=== PATIENT | female | born 1985 | race Caucasian/White ===

== ENCOUNTER → 2019-01-31 | Outpatient (CLI) | payer OTHER ==
--- NOTE | 2019-01-31 15:39 | US ---
EXAMINATION TYPE: US thyroid st tissue head/neck DATE OF EXAM: 01/31/2019 COMPARISON: US CLINICAL HISTORY: R22.0 Localized swelling, mass and lump, head. Right anterior neck prominence noted x 2 weeks GLAND SIZE: Right Lobe: 5.1 x 1.9 x 1.8 cm Overall Parenchyma: homogenous Left Lobe: 5.1 x 1.7 x 1.5 cm Overall Parenchyma: homogeneous Isthmus Thickness: 0.3 cm NODULES RIGHT: # of nodules measured on right: 0 LEFT: # of nodules measured on left: 0 ISTHMUS: # of nodules measured in the isthmus: 0 Bilateral neck scanned: no evidence of lymphadenopathy. No sonographic mass is seen anteriorly at right neck patient's area of concern. IMPRESSION: Mildly enlarged thyroid gland without focal thyroid nodule. No mass is seen sonographically at the lo cation of the patient's palpable abnormality.
[2019-01-31 16:00] LABS: T4, Free (Free Thyroxine) 0.81 ng/dL (0.78-2.19)
== END ==
LOC: RADUSWWP 14:56
PROVIDERS: ATTEND Internal Medicine
DX: E04.9 Nontoxic goiter, unspecified (principal); Z88.0 Allergy status to penicillin
CPT/HCPCS: 36415; 76536; 84439; 84443; 84481; 86800

== ENCOUNTER 2020-12-22 09:09 | Emergency (ER) | payer OTHER ==
[2020-12-22 09:13] VITALS: BP 115/70; PULSE 89; RESP 18; TEMP 97.7
[2020-12-22] MEDS ORDERED: SODIUM CHLORIDE 0.9% 1,000 ML IV STA (09:30)
[2020-12-22 10:02] LABS: Basophils % (A) 1 %; Eosinophils % (A) 1 %; HCT 46.2 % (34.0-46.0); Lymphocytes # (A) 1.2 k/uL (1.0-4.8); Lymphocytes % (A) 16 %; MCHC 34.6 g/dL (31.0-37.0); MCV 92.3 fL (80.0-100.0); Mean Platelet Volume 7.2; Monocytes # (A) 0.3 k/uL (0-1.0); Monocytes % (A) 3 %; Neutrophils % (A) 79 %; Platelet Count 243 k/uL (150-450); RDW 11.9 % (11.5-15.5); WBC 7.6 k/uL (3.8-10.6)
--- NOTE | 2020-12-22 10:03 | ED ---
Abdominal Pain HPI - General Chief Complaint: Abdominal Pain Stated Complaint: abd pain/blood in stool Time Seen by Provider: 12/22/20 09:19 Source: patient, RN notes reviewed Mode of arrival: ambulatory Limitations: no limitations - History of Present Illness Initial Comments: This is a 35-year-old female presents emergency Department with chief complaint of abdominal pain. Patient states started last night after eating. States she started having lower abdominal pain states that she then started having some diarrhea which she noticed some blood within the stool. Patient has no prior GI his. Denies any history of ulcerative colitis, Crohn's, diverticulitis. Patient reports no fevers chills slight nausea no dysuria no hematuria denies any chance . - Related Data Home Medications Medication Instructions Recorded Confirmed Elderberry Fruit and Flower [Black 1 cap PO DAILY 12/22/20 12/22/20 Elderberry 575 mg Cap] Zinc 50 mg PO DAILY 12/22/20 12/22/20 medroxyPROGESTERone [Depo-Provera] 150 mg IM Q90D 12/22/20 12/22/20 Previous Rx's Medication Instructions Recorded Ciprofloxacin HCl [Cipro] 500 mg PO Q12HR #14 tablet 12/22/20 Ondansetron Odt [Zofran Odt] 4 mg PO Q8HR PRN #10 tab 12/22/20 metroNIDAZOLE [Flagyl] 500 mg PO TID #21 tab 12/22/20 Allergies Allergy/AdvReac Type Severity Reaction Status Date / Time Penicillins Allergy Unknown Verified 12/22/20 11:14 Childhood Sulfa (Sulfonamide Allergy Unknown Verified 12/22/20 11:14 Antibiotics) Childhood Review of Systems ROS Statement: Those systems with pertinent positive or pertinent negative responses have been documented in the HPI. ROS Other: All systems not noted in ROS Statement are negative. Past Medical History Past Medical History: No Reported History History of Any Multi-Drug Resistant Organisms: None Reported Additional Past Surgical History / Comment(s): oral Past Psychological History: No Psychological Hx Reported Smoking Status: Current every day smoker Past Alcohol Use History: None Reported Past Drug Use History: Marijuana General Exam Limitations: no limitations General appearance: alert, in no apparent distress Head exam: Present: atraumatic, normocephalic, normal inspection Neck exam: Present: normal inspection. Absent: tenderness, meningismus, lymphadenopathy Respiratory exam: Present: normal lung sounds bilaterally. Absent: respiratory distress, wheezes, rales, rhonchi, stridor Cardiovascular Exam: Present: regular rate, normal rhythm, normal heart sounds. Absent: systolic murmur, diastolic murmur, rubs, gallop, clicks GI/Abdominal exam: Present: soft, tenderness (Moderate right lower quadrant), normal bowel sounds. Absent: distended, guarding, rebound, rigid Back exam: Absent: CVA tenderness (R), CVA tenderness (L) Neurological exam: Present: alert, oriented X3 Skin exam: Present: warm, dry, intact, normal color. Absent: rash Course Vital Signs 12/22/20 09:11 Temperature 97.7 F Pulse Rate 89 Respiratory 18 Rate Blood Pressure 115/70 O2 Sat by Pulse 99 Oximetry Medical Decision Making - Medical Decision Making 35-year-old female presented for abdominal pain. CT shows evidence of colitis. Patient symptoms are consistent with this. Patient be discharged in stable condition with close follow-up return parameters were discussed patient presents to plan. - Lab Data Result diagrams: 12/22/20 09:42 12/22/20 09:42 Lab Results 12/22/20 12/22/20 12/22/20 Range/Units 09:42 09:42 09:42 WBC 7.6 (3.8-10.6) k/uL RBC 5.00 (3.80-5.40) m/uL Hgb 16.0 (11.4-16.0) gm/dL Hct 46.2 H (34.0-46.0) % MCV 92.3 (80.0-100.0) fL MCH 32.0 (25.0-35.0) pg MCHC 34.6 (31.0-37.0) g/dL RDW 11.9 (11.5-15.5) % Plt Count 243 (150-450) k/uL MPV 7.2 Neutrophils % 79 % Lymphocytes % 16 % Monocytes % 3 % Eosinophils % 1 % Basophils % 1 % Neutrophils # 6.0 (1.3-7.7) k/uL Lymphocytes # 1.2 (1.0-4.8) k/uL Monocytes # 0.3 (0-1.0) k/uL Eosinophils # 0.0 (0-0.7) k/uL Basophils # 0.0 (0-0.2) k/uL PT 9.8 (9.0-12.0) sec INR 0.9 (<1.2) APTT 24.2 (22.0-30.0) sec Sodium (137-145) mmol/L Potassium (3.5-5.1) mmol/L Chloride (98-107) mmol/L Carbon Dioxide (22-30) mmol/L Anion Gap mmol/L BUN (7-17) mg/dL Creatinine (0.52-1.04) mg/dL Est GFR (CKD-EPI)AfAm (>60 ml/min/1.73 sqM) Est GFR (CKD-EPI)NonAf (>60 ml/min/1.73 sqM) Glucose (74-99) mg/dL Plasma Lactic Acid Sridhar (0.7-2.0) mmol/L Calcium (8.4-10.2) mg/dL Total Bilirubin (0.2-1.3) mg/dL AST (14-36) U/L ALT (4-34) U/L Alkaline Phosphatase (38-126) U/L Total Protein (6.3-8.2) g/dL Albumin (3.5-5.0) g/dL Amylase (30-110) U/L Lipase (23-300) U/L Urine Color Yellow Urine Appearance Cloudy H (Clear) Urine pH 5.5 (5.0-8.0) Ur Specific [place] 1.023 (1.001-1.035) Urine Protein Negative (Negative) Urine Glucose (UA) Negative (Negative) Urine Ketones 2+ H (Negative) Urine Blood Negative (Negative) Urine Nitrite Negative (Negative) Urine Bilirubin Negative (Negative) Urine Urobilinogen <2.0 (<2.0) mg/dL Ur Leukocyte Esterase Negative (Negative) Urine WBC 4 (0-5) /hpf Ur Squamous Epith Cells 3 (0-4) /hpf Urine Bacteria Rare H (None) /hpf Urine Mucus Rare H (None) /hpf Urine HCG, Qual (Not Detectd) 12/22/20 12/22/20 12/22/20 Range/Units 09:42 09:42 09:42 WBC (3.8-10.6) k/uL RBC (3.80-5.40) m/uL Hgb (11.4-16.0) gm/dL Hct (34.0-46.0) % MCV (80.0-100.0) fL MCH (25.0-35.0) pg MCHC (31.0-37.0) g/dL RDW (11.5-15.5) % Plt Count (150-450) k/uL MPV Neutrophils % % Lymphocytes % % Monocytes % % Eosinophils % % Basophils % % Neutrophils # (1.3-7.7) k/uL Lymphocytes # (1.0-4.8) k/uL Monocytes # (0-1.0) k/uL Eosinophils # (0-0.7) k/uL Basophils # (0-0.2) k/uL PT (9.0-12.0) sec INR (<1.2) APTT (22.0-30.0) sec Sodium 139 (137-145) mmol/L Potassium 4.0 (3.5-5.1) mmol/L Chloride 108 H (98-107) mmol/L Carbon Dioxide 23 (22-30) mmol/L Anion Gap 8 mmol/L BUN 8 (7-17) mg/dL Creatinine 0.66 (0.52-1.04) mg/dL Est GFR (CKD-EPI)AfAm >90 (>60 ml/min/1.73 sqM) Est GFR (CKD-EPI)NonAf >90 (>60 ml/min/1.73 sqM) Glucose 114 H (74-99) mg/dL Plasma Lactic Acid Sridhar 0.8 (0.7-2.0) mmol/L Calcium 9.4 (8.4-10.2) mg/dL Total Bilirubin 0.9 (0.2-1.3) mg/dL AST 26 (14-36) U/L ALT 25 (4-34) U/L Alkaline Phosphatase 72 (38-126) U/L Total Protein 6.9 (6.3-8.2) g/dL Albumin 4.5 (3.5-5.0) g/dL Amylase 79 (30-110) U/L Lipase 158 (23-300) U/L Urine Color Urine Appearance (Clear) Urine pH (5.0-8.0) Ur Specific [place] (1.001-1.035) Urine Protein (Negative) Urine Glucose (UA) (Negative) Urine Ketones (Negative) Urine Blood (Negative) Urine Nitrite (Negative) Urine Bilirubin (Negative) Urine Urobilinogen (<2.0) mg/dL Ur Leukocyte Esterase (Negative) Urine WBC (0-5) /hpf Ur Squamous Epith Cells (0-4) /hpf Urine Bacteria (None) /hpf Urine Mucus (None) /hpf Urine HCG, Qual Not Detected (Not Detectd) Disposition Clinical Impression: Colitis Disposition: HOME SELF-CARE Condition: Stable Instructions (If sedation given, give patient instructions): Infectious Colitis (ED) Additional Instructions: Please return to the Emergency Department if symptoms worsen or any other concerns. Prescriptions: Ciprofloxacin HCl [Cipro] 500 mg PO Q12HR #14 tablet metroNIDAZOLE [Flagyl] 500 mg PO TID #21 tab Ondansetron Odt [Zofran Odt] 4 mg PO Q8HR PRN #10 tab PRN Reason: Nausea Is patient prescribed a controlled substance at d/c from ED?: No Referrals: Benita Rodriguez DO [Primary Care Provider] - 1-2 days Time of Disposition: 11:35
[2020-12-22 10:06] LABS: Appearance,Urine Cloudy (Clear); Bacteria,Urine Rare /hpf; Bilirubin,Urine Negative (Negative); Blood,Urine Negative (Negative); Color,Urine Yellow; Glucose,Urine (UA) Negative (Negative); Ketones,Urine 2+ (Negative); Leukocyte Esterase,Urine Negative (Negative); Mucus,Urine Rare /hpf; Nitrite,Urine Negative (Negative); PH, Urine 5.5 (5.0-8.0); Protein,Urine Negative (Negative); Specific Gravity,Urine 1.023 (1.001-1.035); Squamous Epithelial Cell,Urine 3 /hpf (0-4); Urobilinogen,Urine <2.0 mg/dL (<2.0); WBC,Urine 4 /hpf (0-5)
[2020-12-22 10:15] LABS: ALT 25 U/L (4-34); AST 26 U/L (14-36); African American GFR (CKD) >90 (>60 ml/min/1.73 sqM); Albumin 4.5 g/dL (3.5-5.0); Alkaline Phosphatase 72 U/L (38-126); Amylase 79 U/L (30-110); Anion Gap 8 mmol/L; Blood Urea Nitrogen 8 mg/dL (7-17); Calcium 9.4 mg/dL (8.4-10.2); Carbon Dioxide 23 mmol/L (22-30); Chloride 108 mmol/L (98-107); Glucose 114 mg/dL (74-99); Lipase 158 U/L (23-300); Non-African American GFR(CKD) >90 (>60 ml/min/1.73 sqM); Sodium 139 mmol/L (137-145); Total Bilirubin 0.9 mg/dL (0.2-1.3); Total Protein 6.9 g/dL (6.3-8.2)
[2020-12-22 10:26] LABS: INR 0.9 (<1.2); Partial Thromboplastin Time 24.2 sec (22.0-30.0); Prothrombin Time 9.8 sec (9.0-12.0)
--- NOTE | 2020-12-22 10:46 | CT ---
EXAMINATION TYPE: CT abdomen pelvis w con DATE OF EXAM: 12/22/2020 COMPARISON: None HISTORY: RLQ abdominal pain, blood in stool CT DLP: 662.4 mGycm Automated exposure control for dose reduction was used. CONTRAST: CT scan of the abdomen pelvis is performed with IV Contrast, patient injected with 100 ml mL of Isovu e 300. FINDINGS- LUNG BASES- No significant abnormality is appreciated. LIVER/GB-1.4 cm hypodense lesion in the dome of the liver does not meet the criteria of a simple cyst . Recommend follow-up MRI with hemangioma of measures 40 Hounsfield units. PANCREAS- No gross abnormality is seen. SPLEEN- No gross abnormality is seen. ADRENALS- No gross abnormality is seen. KIDNEYS/BLADDER- no hydronephrosis nephrolithiasis or renal mass. BOWEL-appendix is normal. There is mild wall thickening of the left colon which could be related to i ncomplete distention. Correlate clinically to exclude a mild colitis. No evidence of obstruction... LYMPH NODES- No greater than 1cm abdominal or pelvic lymph nodes areappreciated. OSSEOUS STRUCTURES-osseous structures intact. Central disc protrusion L4-L5 OTHER- aorta of normal caliber. Small fat-containing periumbilical hernia. There is a right adnexal cysts likely ovarian measuring 1.4 cm. IMPRESSION- 1. Nonspecific abdomen with no obstruction. Normal-appearing appendix. Wall thickening to the left co jaleesa could be related to incomplete distention. However, correlate clinically to exclude a mild coliti s. 2. 1.3 cm hepatic dome lesion does not meet the criteria of a simple cyst. Measures 40 Hounsfield uni ts. Recommend follow-up MRI with hemangioma protocol. 3. There is a 1.4 cm right ovarian cyst. 4. Suspect central disc protrusion L4-L5.
== END 2020-12-22 11:49 | disposition home or self-care (01) ==
LOC: EC 09:09
DX: K52.9 Noninfective gastroenteritis and colitis, unspecified (principal); F17.200 Nicotine dependence, unspecified, uncomplicated; F12.90 Cannabis use, unspecified, uncomplicated
CPT/HCPCS: 36415; 80053; 82150; 83605; 83690; 85025; 85610; 85730; 81001; 81025; 87636; 74177; 99284; 96360; 96361; Q9967

== ENCOUNTER → 2021-01-21 | Outpatient (CLI) | payer OTHER ==
--- NOTE | 2021-01-22 03:56 | MR ---
EXAMINATION TYPE: MR abdomen wo/w con DATE OF EXAM: 01/21/2021 COMPARISON: CT scan 12/22/2020 HISTORY: Liver disease CONTRAST: Standard multiplanar, multisequence MRI departmental protocol utilizing 6.5 mL intravenous Gadavist g adolinium contrast. Unfortunately there is very little contrast on the delayed images due to injector malfunction. There is a nonenhancing 1.8 cm rounded focus with high signal on T2 images in the superior right lobe of the liver. This is consistent with a cyst. The remainder of the liver appears fairly normal. The bile ducts are not dilated. Spleen is intact. The stomach is intact. There is no pleural effusion. Th e pancreas has fairly normal signal pattern. Pancreatic duct appears normal. Kidneys have normal size and contour. There is no hydronephrosis. There is no adrenal mass. There is no sign of retroperitoneal adenopathy. There is no sign of ascites. IMPRESSION: Lesion in the superior right lobe of the liver has features of a cyst. No suspicious liver mass.
== END | disposition home or self-care (01) ==
LOC: RADMRIMAIN 09:18
PROVIDERS: ATTEND Family Medicine
DX: K76.9 Liver disease, unspecified (principal)
CPT/HCPCS: 74183; A9585

== ENCOUNTER → 2021-05-23 | Outpatient (CLI) | payer OTHER ==
[2021-05-23 16:21] LABS: Basophils # (A) 0.03 X 10*3/uL (0.00-0.10); Basophils % (A) 0.3 %; Eosinophils # (A) 0.04 X 10*3/uL (0.04-0.35); Eosinophils % (A) 0.5 %; HCT 44.2 % (37.2-46.3); HGB 14.5 g/dL (12.0-15.0); Lymphocytes # (A) 2.51 X 10*3/uL (0.90-5.00); MCH 30.9 pg (27.0-32.0); MCHC 32.8 g/dL (32.0-37.0); MCV 94.2 fL (80.0-97.0); Monocytes # (A) 0.43 X 10*3/uL (0.20-1.00); Neutrophils # (A) 5.62 X 10*3/uL (1.80-7.70); Neutrophils % (A) 64.9 %; Platelet Count 261 X 10*3/uL (140-440); RBC 4.69 X 10*6/uL (4.10-5.20); RDW 11.9 % (11.5-14.5); WBC 8.66 X 10*3/uL (4.50-10.00)
[2021-05-23 18:46] LABS: African American GFR (CKD) 129.2 (60.0-200.0); Albumin 4.4 g/dL (3.80-4.90); Albumin/Globulin Ratio 2.1 (1.60-3.17); Anion Gap 6.8 mmol/L (4.00-12.00); Calcium 9.1 mg/dL (8.7-10.3); Carbon Dioxide 23.2 mmol/L (21.6-31.8); Chol/HDL Ratio 2.95; Globulin 2.1 g/dL (1.6-3.3); LDL Cholesterol,Calculated 99.8 mg/dL (0.0-131.0); Non-African American GFR(CKD) 111.5 (60.0-200.0); Total Bilirubin 0.5 mg/dL (0.2-1.2); Total Protein 6.5 g/dL (6.2-8.2); VLDL Calculation 17.2 mg/dL (5.00-40.00)
== END | disposition home or self-care (01) ==
LOC: LABWHC1 09:06
PROVIDERS: ATTEND Family Medicine
DX: Z00.00 Encounter for general adult medical examination without abnormal findings (principal)
CPT/HCPCS: 36415; 80053; 80061; 84443; 85025

== ENCOUNTER → 2021-08-10 | Outpatient (CLI) | payer OTHER | END | disposition home or self-care (01) | LOC: LABWHC1 07:31 | PROVIDERS: ATTEND Obstetrics & Gynecology | DX: N94.89 Other specified conditions associated with female genital organs and menstrual cycle (principal) | CPT/HCPCS: 36415; 84702 ==

== ENCOUNTER → 2021-09-19 | Outpatient (CLI) | payer OTHER ==
--- NOTE | 2021-09-20 10:07 | MM ---
Reason for exam: screening (asymptomatic). Baseline mammogram. History: Family history of breast cancer in maternal aunt at age 60. Taking hormonal contraceptives beginning at age 17. Physical Findings: Nurse did not find any significant physical abnormalities on exam. MG 3D Screening Mammo W/Cad Bilateral CC and MLO view(s) were taken. The breast tissue is heterogeneously dense. This may lower the sensitivity of mammography. There is no discrete abnormality. ASSESSMENT: Negative, BI-RAD 1 RECOMMENDATION: Routine screening mammogram of both breasts in 1 year.
== END | disposition home or self-care (01) ==
LOC: RADMAMWWP 08:06
PROVIDERS: ATTEND Obstetrics & Gynecology
DX: Z12.31 Encounter for screening mammogram for malignant neoplasm of breast (principal); Z80.3 Family history of malignant neoplasm of breast
CPT/HCPCS: 77063; 77067